=== PATIENT | female | born 1945 | race African-American/Black ===

== ENCOUNTER 2018-01-02 12:00 | Emergency (ER) | payer OTHER ==
[~2018-01-02] VITALS: Ht 156.2 cm; Wt 108.0 kg
[~2018-01-02 12:00] MED LIST: IBUP800T23 PO; LASI20TA PO; LEVO.1 PO; LIPI40TA PO; PAXI20TA26 PO; PREG100 PO; PRIL10CA PO; TOLT10TA PO
[2018-01-02 12:08] VITALS: BP 176/89; PULSE 71; RESP 16; TEMP 97.8; O2SAT 98
[2018-01-02] MEDS ORDERED: HYDR-3583 PO (14:06)
[2018-01-02] MEDS ORDERED: LEVO.1 PO (14:06)
[2018-01-02] MEDS ORDERED: METF500T PO (14:06)
[2018-01-02] MEDS ORDERED: LYRI100C PO (14:06)
[2018-01-02] MEDS ORDERED: FURO1TAB62 PO (14:06)
[2018-01-02] MEDS ORDERED: OMEP20TA93 PO (14:06)
[2018-01-02] MEDS ORDERED: BACL20TA PO (14:06)
[2018-01-02] MEDS ORDERED: ATOR40TA16 PO (14:06)
[2018-01-02] MEDS ORDERED: LYRI150C PO (14:06)
[2018-01-02] MEDS ORDERED: VITA2000 PO (14:06)
[2018-01-02] MEDS ORDERED: PAXI10TA8 PO (14:06)
[2018-01-02] MEDS ORDERED: METO-309 PO (14:06)
[2018-01-02] MEDS ORDERED: MECLIZINE HCL 25 MG TAB PO ONE (14:30)
[2018-01-02] MEDS ORDERED: ACETAMINOPHEN/HYDROcodone 325 MG/5 MG TAB PO ONE (14:30)
--- NOTE | 2018-01-02 14:35 | PD ---
HPI . Trip and fall Chief Complaint: Fall Time Seen by Provider: 13:51 Travel History International Travel<30 days: No Contact w/Intl Traveler<30days: No Traveled to known affect area: No History of Present Illness HPI Patient presents by EVAC following a trip and fall at [facility] this morning. She sings in the choir and was walking up the steps to her spot in the choir when she fell striking her chin. She reports no loss of consciousness. She states that she twisted her back. She comes in complaining with back pain but also complaining with dizziness. She describes the dizziness as a lightheaded sensation. It is associated with some nausea. She states that she had to sit down because of the dizziness. 1 of the ladies in the [employer] was a nurse. The nurse suggested to the patient that she be brought to the emergency department for evaluation of the dizziness. The patient is unsure as to whether the dizziness is as a result of her back pain or a head injury or something else. She does states that her back pain is 8/10 and is exacerbated by movement. PFSH Past Medical History Diabetes: Yes Patient Takes Glucophage: Yes Tetanus Vaccination: Unknown Influenza Vaccination: Yes Menopausal: Yes Past Surgical History Section: Yes Other Surgery: Yes (SWEAT GLAND REMOVED FROM R AXILLA AREA) Social History Alcohol Use: Yes (OCC) Tobacco Use: No Substance Use: No Allergies-Medications (Allergen,Severity, Reaction): Coded Allergies: chocolate flavor (Unverified Allergy, Unknown, 01/02/18) codeine (Verified Adverse Reaction, Intermediate, Nausea/Vomiting, 01/02/18) Reported Meds & Prescriptions Reported Meds & Active Scripts Active Reported Metformin (Metformin HCl) 500 Mg Tab 500 Mg PO BIDPC Lopressor (Metoprolol Tartrate) 50 Mg Tab 2.5 Mg PO DAILY Hydrocodone-Acetamin 10-325 mg (Hydrocodone/Acetaminophen) 10 Mg-325 Mg Tablet 1 Tab PO QID Baclofen 20 Mg Tab 20 Mg PO QID Vitamin D3 (Cholecalciferol) 2,000 Unit Cap 2,000 Units PO BID Paxil (Paroxetine HCl) 10 Mg Tab 20 Mg PO DAILY Synthroid (Levothyroxine Sodium) 100 Mcg Tab 100 Mcg PO DAILY Lyrica (Pregabalin) 150 Mg Cap 150 Mg PO BID Lyrica (Pregabalin) 100 Mg Cap 100 Mg PO DAILY AT NOON Omeprazole 20 Mg Tab 20 Mg PO DAILY Lasix (Furosemide) 20 Mg Tab 20 Mg PO DAILY Atorvastatin (Atorvastatin Calcium) 40 Mg Tab 40 Mg PO HS Review of Systems Except as stated in HPI: all other systems reviewed are Neg Eyes: No: Blurred Vision HENT: Positive: Lightheadedness Cardiovascular: No: Chest Pain or Discomfort Respiratory: No: Shortness of Breath Gastrointestinal: Positive: Nausea Neurologic: Positive: Dizziness, No: Syncope, Focal Abnormalities, Headache, Change in Mentation, Slurred Speech Physical Exam Narrative GENERAL: Pleasant older woman who is awake and alert and does not appear to be in any acute distress. SKIN: warm/dry. HEAD: Normocephalic. Atraumatic. EYES: Pupils equal and round. No scleral icterus. No injection or drainage. ENT: No nasal bleeding or discharge. Mucous membranes pink and moist. NECK: Trachea midline. Full range of motion without pain.. CARDIOVASCULAR: Regular rate and rhythm. RESPIRATORY: No accessory muscle use. Clear to auscultation. Breath sounds equal bilaterally. GASTROINTESTINAL: Abdomen soft. Nontender. Bowel sounds present. Nondistended. MUSCULOSKELETAL: She has some mid thoracic and some mid lumbar tenderness with no deformity. Distally neurovascularly intact. NEUROLOGICAL: Awake and alert. No obvious cranial nerve deficits. Motor grossly within normal limits. Normal speech. PSYCHIATRIC: Appropriate mood and affect; insight and judgment normal. Data Data Last Documented VS Vital Signs Date Time Temp Pulse Resp B/P (MAP) Pulse Ox O2 Delivery O2 Flow Rate FiO2 01/02/18 15:13 67 18 142/77 (98) 100 Room Air 01/02/18 12:08 97.8 Orders Orders Electrocardiogram (01/02/18 14:26) Basic Metabolic Panel (Bmp) (01/02/18 14:26) Complete Blood Count With Diff (01/02/18 14:26) Ct Brain W/O Iv Contrast(Rout) (01/02/18 14:26) Meclizine (Antivert) (01/02/18 14:30) Spine, Thoracic-Ap/Lat/Sw(3vw) (01/02/18 14:26) Spine, Lumbar - Ltd (Ap & Lat) (01/02/18 14:26) Acetamin-Hydrocod 325-5 Mg ([place] 5-325 (01/02/18 14:30) MDM Medical Decision Making Medical Screen Exam Complete: Yes Emergency Medical Condition: Yes Interpretation(s) EKG shows a normal sinus rhythm with no acute ischemic change Differential Diagnosis Differential diagnosis of dizziness includes but is not limited to vertigo, dehydration, acute blood loss, sepsis, ACS Differential diagnosis of back injury includes but is not limited to contusion, muscle strain, ligamentous strain, compression fracture, spinous process fracture Narrative Course This patient presents by EVAC following a trip and fall. She struck her chin. She twisted her back and comes in complaining with both thoracic and lumbar back pain. In addition, the patient has felt dizzy since the fall. She had no loss of consciousness with the fall. I have ordered a "dizzy" workup including an EKG to check for cardiac rhythm, CT of her head to rule out brain bleed and basic labs. Her pain will be treated with [place] and the dizziness with meclizine. Last Impressions Thoracic Spine X-Ray 01/02/181425 Signed Impressions: Service Date/Time: Tuesday, January 02, 2018 14:42 - CONCLUSION: No acute fracture. Degenerative spondylosis. Kunal Espino MD Lumbar Spine X-Ray 01/02/181425 Signed Impressions: Service Date/Time: Tuesday, January 02, 2018 14:43 - CONCLUSION: Advanced degenerative disease and facet arthropathy. No evidence of acute bone injury. Kunal Espino MD Head CT 01/02/181425 Signed Impressions: Service Date/Time: Tuesday, January 02, 2018 15:00 - CONCLUSION: No acute disease. No evidence of acute infarct, hemorrhage, mass or edema. Kunal Espino MD 1640 p.m. Unfortunately, the patient's labs have not yet been drawn. Her care is being turned over to the oncoming provider pending her lab results. I suspect that they will all be okay and that she will be able to go home. Diagnosis Primary Impression: Dizziness Additional Impression: Back strain Qualified Codes: S39.012A - Strain of muscle, fascia and tendon of lower back , initial encounter Patient Instructions: Dizziness (ED), General Instructions, Low Back Strain (DC ) Condition: Stable Namita Zhu MD Jan 02, 2018 14:34
[2018-01-02 15:13] VITALS: BP 142/77; PULSE 67; RESP 18; O2SAT 100
--- NOTE | 2018-01-02 15:13 | RADRPT ---
EXAM DATE/TIME: 01/02/2018 14:42 [facility] COMPARISON: No previous studies available for comparison. INDICATIONS : Fell today resulting in upper back pain. MEDICAL HISTORY : None. SURGICAL HISTORY : None. ENCOUNTER: Initial ACUITY: 1 day PAIN SCORE: 5/10 LOCATION: Thoracic. FINDINGS: There is loss of height in several mid to lower thoracic vertebral bodies. There is no evidence of ac gary compression fracture. Degenerative disc disease with spondylosis is present throughout the thoracic spine especially in the mid to lower segments. There are no destructive changes. CONCLUSION: No acute fracture. Degenerative spondylosis. Kunal Espino MD on January 02, 2018 at 15:08 Board Certified Radiologist. This report was verified electronically.
--- NOTE | 2018-01-02 15:14 | RADRPT ---
EXAM DATE/TIME: 01/02/2018 14:43 [facility] COMPARISON: No previous studies available for comparison. INDICATIONS : Fell today, resulting in lower back pain. MEDICAL HISTORY : None. SURGICAL HISTORY : None. ENCOUNTER: Initial ACUITY: 1 day PAIN SCORE: 5/10 LOCATION: Lumbar. FINDINGS: Vertebral bodies are intact without evidence of acute compression fracture. Advanced degenerative changes are seen in the lower lumbar spine. There is moderate degenerative disc disease at L2-3, L3-4 and L4-5. Disc space narrowing is marginal spondylosis is noted. Severe degenerative disc disease is noted at L5-S1. There is complete collapse of the disc with endpl ate sclerosis and marginal spondylosis. There are significant lower lumbar facet arthropathy is noted . CONCLUSION: Advanced degenerative disease and facet arthropathy. No evidence of acute bone injury. Kunal Espino MD on January 02, 2018 at 15:11 Board Certified Radiologist. This report was verified electronically.
--- NOTE | 2018-01-02 15:36 | RADRPT ---
EXAM DATE/TIME: 01/02/2018 15:00 [facility] COMPARISON: No previous studies available for comparison. INDICATIONS : Tripped and fell hitting her chin. RADIATION DOSE: 56.35 CTDIvol (mGy) MEDICAL HISTORY : Diabetes SURGICAL HISTORY : None listed ENCOUNTER: Initial ACUITY: 1 day PAIN SCALE: 5/10 LOCATION: cranial TECHNIQUE: Multiple contiguous axial images were obtained of the head. Using automated exposure control and adj ustment of the mA and/or kV according to patient size, radiation dose was kept as low as reasonably a chievable to obtain optimal diagnostic quality images. DICOM format image data is available electro nically for review and comparison. FINDINGS: CEREBRUM: The ventricles are normal for age. No evidence of midline shift, mass lesion, hemorrhage or acute in farction. No extra-axial fluid collections are seen. POSTERIOR FOSSA: The cerebellum and brainstem are intact. The 4th ventricle is midline. The cerebellopontine angle i s unremarkable. EXTRACRANIAL: The visualized portion of the orbits is intact. SKULL: The calvaria is intact. No evidence of skull fracture. CONCLUSION: No acute disease. No evidence of acute infarct, hemorrhage, mass or edema. Kunal Espino MD on January 02, 2018 at 15:32 Board Certified Radiologist. This report was verified electronically.
[2018-01-02 17:21] LABS: BASOPHIL % 1.1 % (0.0-2.0); EOSINOPHIL # 0.1 TH/MM3 (0-0.4); EOSINOPHIL % 2.4 % (0.0-4.0); HEMATOCRIT 39.1 % (35.0-46.0); HEMOGLOBIN 12.4 GM/DL (11.6-15.3); LYMPH % 42.8 % (9.0-44.0); LYMPHOCYTE # 1.9 TH/MM3 (1.0-4.8); MEAN CELL VOLUME 87.6 FL (80.0-100.0); MEAN CORPUSCULAR HEMOGLOBIN 27.8 PG (27.0-34.0); MEAN CORPUSCULAR HGB CONC 31.7 % (32.0-36.0); MEAN PLATELET VOLUME 9.6 FL (7.0-11.0); MONO % 9.5 % (0.0-8.0); MONOCYTE # 0.4 TH/MM3 (0-0.9); NEUT % 44.2 % (16.0-70.0); PLATELET COUNT 179 TH/MM3 (150-450); RED BLOOD COUNT 4.46 MIL/MM3 (4.00-5.30); RED CELL DISTRIBUTION WIDTH 14.5 % (11.6-17.2); WHITE BLOOD COUNT 4.5 TH/MM3 (4.0-11.0)
[2018-01-02 17:51] LABS: BICARBONATE 28.6 MEQ/L (21.0-32.0); CALCIUM 8.8 MG/DL (8.5-10.1); CREATININE 0.69 MG/DL (0.50-1.00)
--- NOTE | 2018-01-02 18:17 | PD ---
Data Data Last Documented VS Vital Signs Date Time Temp Pulse Resp B/P (MAP) Pulse Ox O2 Delivery O2 Flow Rate FiO2 01/02/18 15:13 67 18 142/77 (98) 100 Room Air 01/02/18 12:08 97.8 Orders Orders Electrocardiogram (01/02/18 14:26) Basic Metabolic Panel (Bmp) (01/02/18 14:26) Complete Blood Count With Diff (01/02/18 14:26) Ct Brain W/O Iv Contrast(Rout) (01/02/18 14:26) Meclizine (Antivert) (01/02/18 14:30) Spine, Thoracic-Ap/Lat/Sw(3vw) (01/02/18 14:26) Spine, Lumbar - Ltd (Ap & Lat) (01/02/18 14:26) Acetamin-Hydrocod 325-5 Mg ([place] 5-325 (01/02/18 14:30) Labs Laboratory Tests Test 01/02/18 16:40 White Blood Count 4.5 TH/MM3 Red Blood Count 4.46 MIL/MM3 Hemoglobin 12.4 GM/DL Hematocrit 39.1 % Mean Corpuscular Volume 87.6 FL Mean Corpuscular Hemoglobin 27.8 PG Mean Corpuscular Hemoglobin Concent 31.7 % Red Cell Distribution Width 14.5 % Platelet Count 179 TH/MM3 Mean Platelet Volume 9.6 FL Neutrophils (%) (Auto) 44.2 % Lymphocytes (%) (Auto) 42.8 % Monocytes (%) (Auto) 9.5 % Eosinophils (%) (Auto) 2.4 % Basophils (%) (Auto) 1.1 % Neutrophils # (Auto) 2.0 TH/MM3 Lymphocytes # (Auto) 1.9 TH/MM3 Monocytes # (Auto) 0.4 TH/MM3 Eosinophils # (Auto) 0.1 TH/MM3 Basophils # (Auto) 0.0 TH/MM3 CBC Comment DIFF FINAL Differential Comment Blood Urea Nitrogen 21 MG/DL Creatinine 0.69 MG/DL Random Glucose 98 MG/DL Calcium Level 8.8 MG/DL Sodium Level 143 MEQ/L Potassium Level 3.8 MEQ/L Chloride Level 109 MEQ/L Carbon Dioxide Level 28.6 MEQ/L Anion Gap 5 MEQ/L Estimat Glomerular Filtration Rate 102 ML/MIN [facility] Medical Record Reviewed: Yes Supervised Visit with CORBIN: Yes Narrative Course Vital Signs Date Time Temp Pulse Resp B/P (MAP) Pulse Ox O2 Delivery O2 Flow Rate FiO2 01/02/18 15:13 67 18 142/77 (98) 100 Room Air 01/02/18 12:08 97.8 71 16 176/89 (118) 98 Last Impressions Thoracic Spine X-Ray 01/02/181425 Signed Impressions: Service Date/Time: Tuesday, January 02, 2018 14:42 - CONCLUSION: No acute fracture. Degenerative spondylosis. Kunal Espino MD Lumbar Spine X-Ray 01/02/181425 Signed Impressions: Service Date/Time: Tuesday, January 02, 2018 14:43 - CONCLUSION: Advanced degenerative disease and facet arthropathy. No evidence of acute bone injury. Kunal Espino MD Head CT 01/02/181425 Signed Impressions: Service Date/Time: Tuesday, January 02, 2018 15:00 - CONCLUSION: No acute disease. No evidence of acute infarct, hemorrhage, mass or edema. Kunal Espino MD CBC & BMP Diagram 01/02/18 16:40 Calcium Level 8.8 Please refer to outgoing provider note. Pt found resting comfortably without complaint at 545pm. Work up grossly unremarkable. Follow up with [employer] physicians for further diagnostic evaluation. Diagnosis Primary Impression: Dizziness Additional Impression: Back strain Qualified Codes: S39.012A - Strain of muscle, fascia and tendon of lower back , initial encounter Referrals: Primary Care Physician 2 days Patient Instructions: General Instructions, Low Back Strain (DC), Dizziness (ED ) Condition: Stable Chirag Costa MD Jan 02, 2018 18:17
[2018-01-02 18:37] VITALS: BP 138/75; PULSE 65; RESP 16; O2SAT 100
--- NOTE | 2018-01-03 09:02 | EKG ---
Date Performed: 01/02/2018 Time Performed: 15:32:48 PTAGE: 72 years EKG: Sinus rhythm NORMAL ECG PREVIOUS TRACING : 04/05/2010 12.39 Since the previous tracing, no significant change noted DOCTOR: Grazyna Prado Interpretating Date/Time 01/03/2018 09:00:50
== END 2018-01-02 19:05 | disposition home or self-care (01) ==
LOC: NEPD 12:00
DX: S39.012A Strain of muscle, fascia and tendon of lower back, initial encounter (principal); M47.9 Spondylosis, unspecified; R42 Dizziness and giddiness; R11.0 Nausea; E11.9 Type 2 diabetes mellitus without complications; W01.0XXA Fall on same level from slipping, tripping and stumbling without subsequent striking against object, initial encounter; Z88.5 Allergy status to narcotic agent; Z79.899 Other long term (current) drug therapy
CPT/HCPCS: 70450; 72072; 72100; 80048; 85025; 93005